=== PATIENT | male | born 1955 ===

== ENCOUNTER 2018-08-25 05:30 | Day surgery (SDC) | payer OTHER | END 2018-08-25 13:25 | disposition home or self-care (01) | LOC: AMB-ENDOS 05:30 | DX: D12.7 Benign neoplasm of rectosigmoid junction (principal); K64.1 Second degree hemorrhoids ==

== ENCOUNTER 2019-01-12 05:45 | Day surgery (SDC) | payer OTHER | END 2019-01-12 11:05 | disposition home or self-care (01) | LOC: AMB-ENDOS 05:45 | DX: D12.4 Benign neoplasm of descending colon (principal); K64.1 Second degree hemorrhoids ==